=== PATIENT | female | born 1945 | race Caucasian/White ===

== ENCOUNTER 2021-04-19 16:27 | Emergency (ER) | payer MEDICARE, BC ==
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
--- NOTE | 2021-04-20 09:46 | CR ---
Hand Comp Min 3V Lt CLINICAL HISTORY: Fall FINDINGS: There is a minimally displaced fracture through the base of the fifth metacarpal. There is osteoarthritic change in the MCP and interphalangeal joints. There is moderate osteoarthritis in the first carpometacarpal joint with periarticular spurring and some soft tissue calcification. Impression: Fracture through base of fifth metacarpal Moderate degenerative changes throughout the hand most consistent with osteoarthritis. There may be an element of the uterus of osteoarthritis in some of the interphalangeal joints
== END 2021-04-19 18:02 | disposition home or self-care (01) ==
LOC: JP.ED 16:27
DX: S62.347A Nondisplaced fracture of base of fifth metacarpal bone, left hand, initial encounter for closed fracture (principal); Z79.899 Other long term (current) drug therapy; V19.9XXA Pedal cyclist (driver) (passenger) injured in unspecified traffic accident, initial encounter
CPT/HCPCS: 29125; 73130-26-LT; 73130-LT; 99282; 99283